=== PATIENT | female | born 1970 | race African-American/Black ===

== ENCOUNTER 2018-08-11 15:28 | Outpatient (CLI) | payer BC ==
--- NOTE | 2018-08-24 11:39 | MMO ---
Bilateral MAMMO Bilat Screen [facility]. CLINICAL HISTORY: Patient is 48 years old and is seen for screening. The patient has no family history of breast cancer. The patient has a history of colon cancer. VIEWS: The views performed were: bilateral craniocaudal with tomosynthesis and bilateral mediolateral oblique with tomosynthesis. FILMS COMPARED: The present examination has been compared to prior imaging studies performed at [facility] on 04/26/2011 and 11/13/2014. MAMMOGRAM FINDINGS: There are scattered fibroglandular densities. There are no suspicious masses, suspicious calcifications, or new areas of architectural distortion. IMPRESSION: THERE IS NO MAMMOGRAPHIC EVIDENCE OF MALIGNANCY. A ROUTINE FOLLOW-UP MAMMOGRAM IN 1 YEAR IS RECOMMENDED. THE RESULTS OF THIS EXAM WERE SENT TO THE PATIENT. ACR BI-RADS Category 1 - Negative MAMMOGRAPHY NOTE: 1. A negative mammogram report should not delay a biopsy if a dominant of clinically suspicious mass is present. 2. Approximately 10% to 15% of breast cancers are not detected by mammography. 3. Adenosis and dense breasts may obscure an underlying neoplasm.
== END 2018-08-11 15:29 | disposition home or self-care (01) ==
LOC: BICMAMMO 15:28
PROVIDERS: ATTEND Hospitalist
DX: Z12.31 Encounter for screening mammogram for malignant neoplasm of breast (principal); Z85.038 Personal history of other malignant neoplasm of large intestine
CPT/HCPCS: 77063; 77067

== ENCOUNTER 2018-08-24 11:59 | Outpatient (CLI) | payer BC ==
--- NOTE | 2018-08-24 13:10 | RAD ---
LEFT KNEE TWO VIEIW 08/24/18 HISTORY: Bilateral primary osteoarthritis of the knees. COMPARISON: None. FINDINGS: There are tricompartmental osteoarthritic degenerative changes. There are large lateral compartment m oderate medial and patellofemoral compartment osteophytes. No significant joint effusion. IMPRESSION: Moderate tricompartmental degenerative disease, worse in the lateral compartment. POS: [facility]
--- NOTE | 2018-08-24 13:55 | RAD ---
RIGHT KNEE TWO VIEWS: HISTORY: Bilateral primary osteoarthrosis of the knee. COMPARISON: None. FINDINGS: There is advanced degenerative disease of the medial compartment with moderate joint space height los s, as well as large osteophyte formation and articular surface remodeling. Central osteophytes of th e lateral compartment. Patellofemoral osteophytes are present. No significant joint effusion. IMPRESSION: Moderate tricompartmental degenerative disease, worse in the medial compartment. POS: [facility]
== END 2018-08-24 12:00 | disposition home or self-care (01) ==
LOC: BICRAD 11:59
PROVIDERS: ATTEND Internal Medicine Rheumatology
DX: M17.0 Bilateral primary osteoarthritis of knee (principal)

== ENCOUNTER 2018-09-11 07:28 | Outpatient (CLI) | payer BC ==
--- NOTE | 2018-09-11 08:35 | CT ---
EXAM: Abdomen and pelvic CT scan with contrast: HISTORY: History of colon cancer diagnosed last year with colon resection with no prior imaging here COMPARISON: None FINDINGS: There are linear and interstitial parenchymal changes in the right left lower lobes and lingula with extensive bilateral bronchiectasis in the lower lobes and less marked in the lingula evidence for extensive chronic lung disease. Liver: No evidence for metastasis. Gallbladder:Multiple gallstones without CT evidence for acute cholecystitis. Pancreas:Unremarkable Spleen:Unremarkable. Adrenal glands:Unremarkable. Kidneys:No renal calculus or acute obstruction.No solid or cystic mass. No evidence for bowel obstruction. No CT evidence for acute appendicitis. The urinary bladder is unremarkable. No abscess, adenopathy, or abnormal fluid collection within the abdomen or pelvis. Status post hysterectomy. 4.8 cm diameter left ovarian cyst. Follow-up pelvic ultrasound recommended. IMPRESSION: 4.8 cm diameter left ovarian cyst. Pelvic ultrasound recommended. Multiple gallstones without acute c holecystitis. Bilateral interstitial and linear parenchymal changes with extensive bronchiectasis evidence for chronic lung disease.
[2018-09-11] MEDS ORDERED: ISOVUE-370 76%-LOCM 1 ML ONE (12:07)
== END 2018-09-11 07:29 | disposition home or self-care (01) ==
LOC: BICCT 07:28
PROVIDERS: ATTEND Internal Medicine Gastroenterology
DX: C18.9 Malignant neoplasm of colon, unspecified (principal); M32.9 Systemic lupus erythematosus, unspecified; J45.909 Unspecified asthma, uncomplicated; N83.202 Unspecified ovarian cyst, left side; J47.9 Bronchiectasis, uncomplicated; J98.4 Other disorders of lung; K80.20 Calculus of gallbladder without cholecystitis without obstruction
CPT/HCPCS: 74177; Q9966

== ENCOUNTER 2018-10-26 15:01 | Outpatient (CLI) | payer BC ==
--- NOTE | 2018-10-26 18:42 | ULT ---
PELVIC SONOGRAM TRANSABDOMINAL AND TRANSVAGINAL IMAGING WITH DUPLEX EVALUATION: 10/26/18 HISTORY: Left ovarian mass. Abnormal CT scan. COMPARISON: CT abdomen and pelvis 09/11/18. FINDINGS: The urinary bladder is unremarkable. The uterus and right ovary are surgically absent. Left ovary measures up to 3.1 cm. Dominant follicle measures up to 1.7 cm. good color and spectral Do ppler flow. The large cyst at the left ovary on the prior CT is no longer visible. No free fluid in t he pelvis. IMPRESSION: Interval resolution of left ovarian cyst. No new abnormalities. Status post hysterectomy and right oophorectomy. POS: [facility]
== END 2018-10-26 15:02 | disposition home or self-care (01) ==
LOC: BICULT 15:01
PROVIDERS: ATTEND Student in an Organized Health Care Education/Training Program
DX: N83.202 Unspecified ovarian cyst, left side (principal); Z90.710 Acquired absence of both cervix and uterus; Z90.721 Acquired absence of ovaries, unilateral
CPT/HCPCS: 76856; 93976

== ENCOUNTER 2018-12-07 14:31 | Outpatient (CLI) | payer BC ==
--- NOTE | 2018-12-07 15:02 | RAD ---
EXAM: Chest 2 views: HISTORY: Dyspnea COMPARISON: None. FINDINGS: There is a normal-sized cardiomediastinal silhouette. There is no evidence of consolidation, mass, or pleural effusion. The bones are unremarkable. IMPRESSION: No evidence of acute cardiopulmonary disease
== END 2018-12-07 14:32 | disposition home or self-care (01) ==
LOC: RAD 14:31
PROVIDERS: ATTEND Internal Medicine Pulmonary Disease
DX: R06.00 Dyspnea, unspecified (principal)
CPT/HCPCS: 71046

== ENCOUNTER 2019-02-05 11:22 | Outpatient (CLI) | payer BC ==
[2019-02-05 14:06] LABS: #Basophils 0.1 thou/uL (0.0-0.2); #Lymphocytes 1.6 thou/uL (1.20-3.40); #Monocytes 0.5 thou/uL (0.11-0.59); #Neutrophils 5.1 thou/uL (1.40-6.50); %Eosinophils 0.4 % (0.0-10.0); %Lymphocytes 21.7 % (21.0-51.0); %Neutrophils 69.9 % (42.0-75.0); Mean Corpuscular HGB CONC 33.5 g/dL (32.0-36.0); Mean Corpuscular Hemoglobin 29.1 pg (27.0-31.0); Mean Platelet Volume 7.7 fL (7.4-10.4); Platelet Count 278 thou/uL (130-400); RBC Distribution Width 12.9 % (11.5-14.5); Red Blood Cell (RBC) Count 4.46 mill/uL (4.20-5.40); White Blood Cell (WBC) Count 7.2 thou/uL (4.8-10.8)
[2019-02-05 14:34] LABS: ALT (SGPT) 32 U/L (8-55); AST (SGOT) 24 U/L (5-34); Albumin 3.6 g/dL (3.5-5.0); Alkaline Phosphatase 73 U/L (40-110); Anion Gap 12 mmol/L (10-20); BUN (Urea Nitrogen) 5 mg/dL (7.0-18.7); Bilirubin, Direct 0.1 mg/dL (0.1-0.3); Bilirubin, Total 0.3 mg/dL (0.2-1.2); Calc. Creatinine Clearance 0 mL/min (70-130); Calcium 8.9 mg/dL (7.8-10.44); Carbon Dioxide 26 mmol/L (22-29); Chloride 104 mmol/L (98-107); Estimated GFR-MDRD Greater than 90; Glucose 99 mg/dL (70-105); Protein, Total 7.4 g/dL (6.0-8.3); Sodium 139 mmol/L (136-145)
[2019-02-05 14:41] LABS: Potassium 2.9 mmol/L (3.5-5.1)
== END 2019-02-05 11:23 | disposition home or self-care (01) ==
LOC: LABBT 11:22
PROVIDERS: ATTEND Surgery
DX: Z01.812 Encounter for preprocedural laboratory examination (principal); K80.80 Other cholelithiasis without obstruction
CPT/HCPCS: 80048; 80076; 85025

== ENCOUNTER 2019-02-06 10:21 | Day surgery (SDC) | payer BC ==
[2019-02-05 11:38] VITALS: BMI 34.4
[2019-02-06] MEDS ORDERED: Fentanyl 100 MCG/2 ML VIAL ONE ×4 (11:30→14:07)
[2019-02-06] MEDS ORDERED: Bupivacaine 0.25% HCL 30 ML VIAL ONE (11:31)
[2019-02-06] MEDS ORDERED: Promethazine HCl 25 MG/ML VIAL ONE (12:58)
[2019-02-06] MEDS ORDERED: Rocuronium Bromide 10 MG/ML (10ML VIAL) ONE (14:50)
[2019-02-06] MEDS ORDERED: Glycopyrrolate 0.2 MG/ML 5 ML SYRINGE ONE (14:50)
[2019-02-06] MEDS ORDERED: Lidocaine 1% PF 5 ML VIAL ONE (14:50)
[2019-02-06] MEDS ORDERED: Ondansetron PF 4 MG/2 ML Vial ONE (14:50)
[2019-02-06] MEDS ORDERED: Succinylcholine Chloride 20 MG/ML 10 ml SYRINGE FS ONE (14:50)
[2019-02-06] MEDS ORDERED: Dexamethasone 20 MG/5 ML VIAL ONE (14:50)
[2019-02-06] MEDS ORDERED: PROPOFOL 200 MG/20 ML VIAL ONE (14:50)
[2019-02-06] MEDS ORDERED: HYDROcodone/Acetaminophen 5/325 mg Tablet ONE (15:44)
--- NOTE | 2019-02-06 18:37 | OP ---
DATE OF PROCEDURE: 02/06/2019 PREOPERATIVE DIAGNOSIS: Symptomatic gallstones. POSTOPERATIVE DIAGNOSIS: Symptomatic gallstones. PROCEDURE PERFORMED: Laparoscopic cholecystectomy. ANESTHESIA: General. ESTIMATED BLOOD LOSS: Minimal. COMPLICATIONS: None. SPECIMEN: Gallbladder. FINDING: Chronic cholecystitis. DESCRIPTION OF PROCEDURE: The patient was taken to the operating room and laid supine on the operating table. After general anesthetic was obtained, the abdomen was prepped and draped in a sterile fashion. Left subcostal 5 mm Optiview trocar was placed in usual fashion without injury. High-flow pneumoperitoneum was obtained. A 12 mm port was placed just to the left of the patient's umbilicus in area of previous surgery without injury. Two right upper quadrant 5 mm ports were placed. The patient was placed in reverse Trendelenburg position. The camera was switched to the lower 12 port. The gallbladder was retracted from the gallbladder fossa. The peritoneum was opened anteriorly and posteriorly. The critical view of triangle was seen showing only the cystic duct and cystic artery branching medial to lateral, no other branching structures. Two clips were placed proximally on the cystic duct and one laterally. It was cut using laparoscopic scissors. Cystic artery was taken in the same way. Cautery was used to dissect the gallbladder out of the gallbladder fossa. Gallbladder was placed in EndoCatch bag and brought out through the 12 mm trocar site. Fascial defect was closed using GraNee needle Vicryl tie. All port sites were infiltrated using local anesthetic. There was no bleeding or bile in the liver bed. Right upper quadrant was irrigated using sterile solution until returns were clear. All ports were removed under camera visualization. Pneumoperitoneum was let down. Vicryl was used to close the fascial defect from the lower abdominal incision. The other incisions and this incision all closed using 4-0 Monocryl and Dermabond. The patient was sent to Recovery in stable condition. All instrument counts, needle counts, and lap counts were correct. Job ID: [id number]
== END 2019-02-06 16:32 | disposition home or self-care (01) ==
LOC: SDC 10:21
PROVIDERS: ATTEND Surgery
PROC: 0FT44ZZ Resection of Gallbladder, Percutaneous Endoscopic Approach (ICD-10-PCS; principal; 2019-02-06)
DX: K80.10 Calculus of gallbladder with chronic cholecystitis without obstruction (principal); D64.9 Anemia, unspecified; M19.90 Unspecified osteoarthritis, unspecified site; J45.909 Unspecified asthma, uncomplicated; Z88.5 Allergy status to narcotic agent; Z91.018 Allergy to other foods
CPT/HCPCS: 88304; J0131; J0690; J1100; J2001; J2405; J2550; J2704; J3010; S0020

== ENCOUNTER 2020-06-13 08:56 | Outpatient (CLI) | payer BC | END 2020-06-13 08:57 | disposition home or self-care (01) | LOC: BICMAMMO 08:56 | PROVIDERS: ATTEND Hospitalist | DX: Z12.31 Encounter for screening mammogram for malignant neoplasm of breast (principal); Z85.038 Personal history of other malignant neoplasm of large intestine | CPT/HCPCS: 77063; 77067 ==